=== PATIENT | male | born 1950 | race Caucasian/White ===

== ENCOUNTER 2016-09-16 10:47 | Emergency (ER) | payer MEDICARE, MEDICAID ==
[~2016-09-16] VITALS: Ht 177.8 cm; Wt 95.5 kg
[2016-09-16] MEDS ORDERED: FLUD.1 PO ×2 (11:18→19:22)
[2016-09-16] MEDS ORDERED: CLON.1 PO (11:18)
[2016-09-16] MEDS ORDERED: CYCL100L PO ×2 (11:18→19:22)
[2016-09-16] MEDS ORDERED: ALBU8HFA IH (11:18)
[2016-09-16] MEDS ORDERED: METO-325 PO (11:18)
[2016-09-16] MEDS ORDERED: LORA1TAB3 PO (11:18)
[2016-09-16] MEDS ORDERED: OMEP20 PO ×2 (11:18→19:22)
[2016-09-16] MEDS ORDERED: SENN-30 PO (11:18)
[2016-09-16] MEDS ORDERED: TAMS0.4C32 PO ×2 (11:18→19:22)
[2016-09-16] MEDS ORDERED: AMLO-511 PO (11:18)
[2016-09-16] MEDS ORDERED: CITA20TA9 PO ×2 (11:18→19:25)
[2016-09-16] MEDS ORDERED: TADA5TAB7 PO (11:18)
[2016-09-16] MEDS ORDERED: GABA-531 PO ×2 (11:18→19:25)
[2016-09-16] MEDS ORDERED: HYD25 PO ×2 (11:18→19:22)
[2016-09-16] MEDS ORDERED: CYCL10 PO (11:18)
[2016-09-16] MEDS ORDERED: ALBUTEROL SULFATE 5 MG/ML 20 ML NEB SOLN [BULK] NEB ONE ×2 (11:30→13:00)
[2016-09-16] MEDS ORDERED: ACETAMINOPHEN 1000 MG/ISO-OSM 100 ML IV ONE (11:30)
[2016-09-16] MEDS ORDERED: SODIUM CHLORIDE 0.9% 1,000 ML IV ONE ×2 (11:30→12:30)
[2016-09-16] MEDS ORDERED: IPRATROPIUM BROMIDE 0.5 MG/2.5 ML NEB SOLUTION NEB ONE ×2 (11:30→13:00)
[2016-09-16] MEDS ORDERED: MethylPREDNISolone SOD SUCC 125 MG/2 ML VIAL IVP ONE (11:30)
[2016-09-16 12:03] LABS: BASOPHILS % (AUTO) 0.5 % (0.0-2.0); EOSINOPHILS % (AUTO) 0.4 % (1.0-6.0); HEMATOCRIT 28.7 % (41-53); HEMOGLOBIN 9.7 g/dL (13.5-17.5); LYMPHOCYTES % (AUTO) 7.5 % (22.0-44.0); MEAN CORPUSCULAR HEMOGLOBIN 29.7 pg (26.0-34.0); MEAN CORPUSCULAR HGB CONC 33.8 G/dL (31.0-37.0); MEAN CORPUSCULAR VOLUME 88 fL (80-100); MONOCYTES # (AUTO) 0.8 K/uL (0.1-1.0); NEUTROPHILS # (AUTO) 11.7 K/uL (1.8-7.7); PLATELET COUNT (AUTO) 216 K/uL (150-450); RED BLOOD CELL COUNT(AUTO) 3.27 MIL/uL (4.50-5.90); RED CELL DISTRIBUTION WIDTH 14.8 % (11.5-14.5); WHITE BLOOD COUNT (AUTO) 13.7 K/uL (4.5-11.0)
[2016-09-16 12:04] LABS: NEUTROPHILS % (AUTO) 85.6 % (40.0-70.0)
[2016-09-16 12:21] LABS: LACTIC ACID 1.3 mmol/L (0.4-2.0)
[2016-09-16 12:24] LABS: ANION GAP 16 mmol/L (8-16); CALCIUM, TOTAL 8.7 mg/dL (8.8-10.5); CARBON DIOXIDE 17 mmol/L (22-29); CHLORIDE 101 mmol/L (98-107); CREATININE 2.78 mg/dL (0.60-1.30); GLOMERULAR FILTR. RATE CALC 23 mL/min (>60); POTASSIUM 4.1 mmol/L (3.5-5.1); SODIUM SERUM 134 mmol/L (136-145); UREA NITROGEN, BLOOD 50 mg/dL (7-18)
[2016-09-16 12:26] LABS: ALANINE AMINOTRANSFERASE 25 U/L (12-78); ALBUMIN 2.7 g/dL (3.4-5.0); ASPARTATE AMINOTRANSFERASE 20 U/L (15-37); BILIRUBIN,TOTAL 0.5 mg/dL (0.1-1.0)
[2016-09-16 12:34] LABS: B-TYPE NATRIURETIC PEPTIDE 313 pg/mL (0-100)
[2016-09-16 12:45] LABS: ABG A-A DIFF O2 203.1 mmHg (10-20.0); ABG BASE EXCESS -13.2 mmol/L (-2.0-3.0); ABG HCO3 14.8 mmol/L (22.0-26.0); ABG OXYHEMOGLOBIN 89.7 % (94.0-100.0); ABG PCO2 34 mmHg (35-45); ABG PH 7.236 (7.35-7.450); ALLEN TEST, BLOOD GAS Positive; TEMPERATURE, FAHRENHEIT, BG 100.1 FAHREN (96.0-98.6)
[2016-09-16] MEDS ORDERED: PIPERACILLIN/TAZO 3.375 GM/D5W 50 ML IV ONE (13:00)
[2016-09-16] MEDS ORDERED: LEVOFLOXACIN 500 MG/D5% WATER 100 ML IV ONE (13:00)
[2016-09-16 13:01] LABS: CREATINE KINASE MB 1.8 ng/mL (0-5); CREATINE KINASE, TOTAL 93 U/L (39-308)
[2016-09-16 14:04] LABS: PROCALCITONIN (PCT) 2.05 ng/mL (<0.50)
[2016-09-16 14:05] LABS: ABG A-A DIFF O2 110.3 mmHg (10-20.0); ABG BASE EXCESS -15.7 mmol/L (-2.0-3.0); ABG OXYHEMOGLOBIN 83.3 % (94.0-100.0); ABG PCO2 32 mmHg (35-45); ABG PH 7.198 (7.35-7.450); TEMPERATURE, FAHRENHEIT, BG 99.8 FAHREN (96.0-98.6)
[2016-09-16 14:06] LABS: ALLEN TEST, BLOOD GAS Positive; IPAP, BG 16 cm H2O
[2016-09-16] MEDS ORDERED: ACETAMINOPHEN 325 MG TABLET PO PRN (14:45)
[2016-09-16] MEDS ORDERED: ONDANSETRON HCL 4 MG/2 ML VIAL IVP PRN (14:45)
[2016-09-16] MEDS: ALBUTEROL SULFATE 2.5 MG/0.5 ML NEB SOLUTION NEB SCH ×3 (15:28→22:51)
[2016-09-16] MEDS: IPRATROPIUM BROMIDE 0.5 MG/2.5 ML NEB SOLUTION NEB SCH ×3 (15:28→22:52)
[2016-09-16 17:17] LABS: APPEARANCE,URINE CLOUDY (CLEAR); GLUCOSE, URINE (UA) 100 mg/dL (NEGATIVE); KETONES,URINE NEGATIVE (NEGATIVE); LEUKOCYTE ESTERASE ,URINE NEGATIVE (NEGATIVE); OCCULT BLOOD,URINE MODERATE (NEGATIVE); PROTEIN,URINE TRACE (NEGATIVE)
[2016-09-16 17:31] LABS: ADD UA MICROSCOPIC YES
[2016-09-16 17:32] LABS: SQUAMOUS EPITHELIAL CELL,UR Rare /LPF (None Seen); WBC,URINE 0-2 /HPF (0-5)
[2016-09-16] MEDS ORDERED: SODIUM BICARBONATE 150 MEQ in DEXTROSE 5%-WATER 1,000 ML IV ONE (18:00)
[2016-09-16] MEDS ORDERED: FOLI0.4T2 PO (19:22)
[2016-09-16] MEDS ORDERED: ASPI-1093 PO (19:22)
[2016-09-16] MEDS ORDERED: AMLO2.5T PO (19:22)
[2016-09-16] MEDS ORDERED: TADA5TAB2 PO (19:22)
[2016-09-16] MEDS ORDERED: CLON0.1T PO (19:22)
[2016-09-16] MEDS ORDERED: SIRO0.5T3 PO (19:22)
[2016-09-16] MEDS ORDERED: METO25 PO (19:25)
[2016-09-16] MEDS ORDERED: DAPTOMYCIN 500 MG in SODIUM CHLORIDE 0.9% 50 ML IV SCH (20:00)
[2016-09-16] MEDS: PIPERACILLIN SODIUM/TAZOBACTAM 2.25 GM in DEXTROSE 5%-WATER 50 ML IV SCH (20:21)
[2016-09-16 20:46] LABS: SALICYLATE 4.9 mg/dL (2.8-20.0)
[2016-09-16 20:47] LABS: ANION GAP 20 mmol/L (8-16); CARBON DIOXIDE 13 mmol/L (22-29); CHLORIDE 100 mmol/L (98-107); CREATININE 3.16 mg/dL (0.60-1.30); GLOMERULAR FILTR. RATE CALC 20 mL/min (>60); POTASSIUM 3.6 mmol/L (3.5-5.1); SODIUM SERUM 133 mmol/L (136-145); UREA NITROGEN, BLOOD 49 mg/dL (7-18)
[2016-09-16 21:04] LABS: ACETAMINOPHEN < 2 mcg/mL (10-30); CALCIUM, TOTAL 8.3 mg/dL (8.8-10.5)
[2016-09-16] MEDS ORDERED: DEXTROSE 5%-0.45% SODIUM CHL 1,000 ML IV PRN (21:56)
[2016-09-16] MEDS ORDERED: SODIUM CHLORIDE 0.45% 1,000 ML IV PRN (21:56)
[2016-09-16] MEDS ORDERED: SODIUM CHLORIDE 0.9% 1,000 ML IV SCH (21:56)
[2016-09-16] MEDS ORDERED: POTASSIUM CHL 20 MEQ/0.45% NS 1,000 ML IV PRN (21:56)
[2016-09-16 21:57] LABS: ABG A-A DIFF O2 143.4 mmHg (10-20.0); ABG BASE EXCESS -15.9 mmol/L (-2.0-3.0); ABG HCO3 13.2 mmol/L (22.0-26.0); ABG OXYHEMOGLOBIN 95.3 % (94.0-100.0); ABG PCO2 27 mmHg (35-45); TEMPERATURE, FAHRENHEIT, BG 97.3 FAHREN (96.0-98.6)
[2016-09-16 21:58] LABS: ALLEN TEST, BLOOD GAS POSITIVE; IPAP, BG 14 cm H2O
[2016-09-16] MEDS ORDERED: DEXTROSE 50%-WATER 25 GM/50 ML SYRINGE IVP PRN (22:00)
[2016-09-16 22:17] LABS: GLUCOSE,POINT OF CARE 444 MG/DL (70-110)
[2016-09-16] MEDS: INSULIN REGULAR, HUMAN 100 UNITS in SODIUM CHLORIDE 0.9% 99 ML IV PRN ×2 (22:30)
[2016-09-16] MEDS ORDERED: FLUCONAZOLE 200 MG/NACL ISOOSM 100 ML IV SCH (23:00)
[2016-09-16 23:07] LABS: GLUCOSE,POINT OF CARE 457 MG/DL (70-110)
[2016-09-16 23:26] LABS: EOSINOPHILS % (AUTO) 0.1 % (1.0-6.0); HEMATOCRIT 26.5 % (41-53); HEMOGLOBIN 8.8 g/dL (13.5-17.5); LYMPHOCYTES # (AUTO) 0.3 K/uL (1.0-4.8); LYMPHOCYTES % (AUTO) 2.1 % (22.0-44.0); MEAN CORPUSCULAR HEMOGLOBIN 29.8 pg (26.0-34.0); MEAN CORPUSCULAR HGB CONC 33.4 G/dL (31.0-37.0); MEAN CORPUSCULAR VOLUME 89 fL (80-100); MONOCYTES # (AUTO) 0.1 K/uL (0.1-1.0); MONOCYTES % (AUTO) 0.9 % (2.0-9.0); NEUTROPHILS # (AUTO) 11.7 K/uL (1.8-7.7); NEUTROPHILS % (AUTO) 96.9 % (40.0-70.0); PLATELET COUNT (AUTO) 182 K/uL (150-450); RED BLOOD CELL COUNT(AUTO) 2.97 MIL/uL (4.50-5.90); RED CELL DISTRIBUTION WIDTH 14.9 % (11.5-14.5); WHITE BLOOD COUNT (AUTO) 12.1 K/uL (4.5-11.0)
[2016-09-16 23:38] LABS: CALCIUM, TOTAL 8.2 mg/dL (8.8-10.5); CREATININE 3.06 mg/dL (0.60-1.30); POTASSIUM 3.3 mmol/L (3.5-5.1)
[2016-09-17 00:01] LABS: GLUCOSE,POINT OF CARE 434 MG/DL (70-110)
[2016-09-17] MEDS: PIPERACILLIN SODIUM/TAZOBACTAM 2.25 GM in DEXTROSE 5%-WATER 50 ML IV SCH ×4 (00:04→13:25)
[2016-09-17] MEDS: POTASSIUM CHLORIDE 40 MEQ in SODIUM CHLORIDE 0.45% 1,000 ML IV PRN ×9 (00:19→07:00)
[2016-09-17] MEDS: INSULIN REGULAR, HUMAN 100 UNITS in SODIUM CHLORIDE 0.9% 99 ML IV PRN ×14 (00:22→06:07)
[2016-09-17 01:12] LABS: GLUCOSE COMMENT 1 Received Meds; GLUCOSE,POINT OF CARE 375 MG/DL (70-110)
[2016-09-17] MEDS: INSULIN REGULAR, HUMAN 100 UNITS/ML IVP PRN ×3 (01:17→03:12)
[2016-09-17 02:17] LABS: GLUCOSE,POINT OF CARE 332 MG/DL (70-110)
[2016-09-17 03:31] LABS: GLUCOSE COMMENT 1 Received Meds; GLUCOSE,POINT OF CARE 294 MG/DL (70-110)
[2016-09-17 04:14] LABS: GLUCOSE,POINT OF CARE 235 MG/DL (70-110)
[2016-09-17 04:28] LABS: ALBUMIN 2.3 g/dL (3.4-5.0); BILIRUBIN,TOTAL 0.2 mg/dL (0.1-1.0); CALCIUM, TOTAL 8.3 mg/dL (8.8-10.5); CREATININE 2.68 mg/dL (0.60-1.30); MAGNESIUM 1.5 mg/dL (1.80-2.40); TOTAL PROTEIN, SERUM 6.4 g/dL (6.4-8.2)
[2016-09-17 04:47] LABS: POTASSIUM 2.9 mmol/L (3.5-5.1)
[2016-09-17 04:48] LABS: PHOSPHORUS 1.2 mg/dL (2.5-4.9)
[2016-09-17 05:12] LABS: GLUCOSE,POINT OF CARE 218 MG/DL (70-110)
[2016-09-17] MEDS ORDERED: MAGNESIUM OXIDE 400 MG TABLET PO PRN ×2 (05:15→07:15)
[2016-09-17] MEDS ORDERED: MAGNESIUM SULFATE 2 GM in DEXTROSE 5%-WATER 50 ML IV PRN ×2 (05:15→07:15)
[2016-09-17] MEDS ORDERED: POTASSIUM CHLORIDE 20 MEQ ER TABLET PO PRN ×2 (05:15→07:15)
[2016-09-17] MEDS ORDERED: POTASSIUM CHL 10 MEQ/WATER 50 ML IV PRN (05:15)
[2016-09-17] MEDS ORDERED: MAGNESIUM SULFATE 4 GM/WATER 100 ML IV PRN ×2 (05:15→07:15)
[2016-09-17 06:07] LABS: GLUCOSE,POINT OF CARE 186 MG/DL (70-110)
[2016-09-17] MEDS: POTASSIUM CHL 10 MEQ/WATER 50 ML IV PRN ×4 (08:09→11:33)
[2016-09-17 08:13] LABS: CALCIUM, TOTAL 8.4 mg/dL (8.8-10.5); CREATININE 2.38 mg/dL (0.60-1.30); POTASSIUM 3.6 mmol/L (3.5-5.1)
[2016-09-17 08:32] LABS: GLUCOSE COMMENT 1 Received Meds; GLUCOSE,POINT OF CARE 142 MG/DL (70-110)
[2016-09-17 08:32] LABS: GLUCOSE,POINT OF CARE 90 MG/DL (70-110)
[2016-09-17 08:40] LABS: ALBUMIN 2.2 g/dL (3.4-5.0)
[2016-09-17 09:20] LABS: ABG A-A DIFF O2 145.1 mmHg (10-20.0); ABG BASE EXCESS -8.8 mmol/L (-2.0-3.0); ABG HCO3 17.9 mmol/L (22.0-26.0); ABG OXYHEMOGLOBIN 92.3 % (94.0-100.0); ABG PCO2 33 mmHg (35-45); ALLEN TEST, BLOOD GAS Positive; TEMPERATURE, FAHRENHEIT, BG 98.6 FAHREN (96.0-98.6)
[2016-09-17 09:22] LABS: IPAP, BG 14 cm H2O
[2016-09-17 09:42] LABS: GLUCOSE,POINT OF CARE 57 MG/DL (70-110)
[2016-09-17 09:52] LABS: GLUCOSE,POINT OF CARE 124 MG/DL (70-110)
[2016-09-17 10:42] LABS: GLUCOSE,POINT OF CARE 85 MG/DL (70-110)
[2016-09-17] MEDS ORDERED: SODIUM CHLORIDE 0.45% 1,000 ML IV SCH (11:15)
[2016-09-17 11:23] LABS: CALCIUM, TOTAL 8.4 mg/dL (8.8-10.5); CREATININE 2.29 mg/dL (0.60-1.30); POTASSIUM 4.8 mmol/L (3.5-5.1)
[2016-09-17 11:47] LABS: GLUCOSE,POINT OF CARE 88 MG/DL (70-110)
[2016-09-17] MEDS ORDERED: ACETAMINOPHEN 325 MG TABLET PO ONE (12:00)
[2016-09-17] MEDS ORDERED: *CLINICAL-LEVOFLOXACIN IVPB DOSING CLINICAL ONE ×2 (12:15)
[2016-09-17] MEDS ORDERED: LEVOFLOXACIN 750 MG/D5% WATER 150 ML IV SCH (13:00)
[2016-09-17 13:37] LABS: GLUCOSE,POINT OF CARE 103 MG/DL (70-110)
[2016-09-17 13:37] LABS: GLUCOSE,POINT OF CARE 133 MG/DL (70-110)
[2016-09-17 14:41] LABS: GLUCOSE,POINT OF CARE 141 MG/DL (70-110)
[2016-09-17 15:32] LABS: CALCIUM, TOTAL 8.4 mg/dL (8.8-10.5); CREATININE 2.23 mg/dL (0.60-1.30); POTASSIUM 5.5 mmol/L (3.5-5.1)
[2016-09-17 15:57] LABS: GLUCOSE,POINT OF CARE 152 MG/DL (70-110)
[2016-09-17 17:17] VITALS: BP 146/81
[2016-09-17 17:22] LABS: GLUCOSE,POINT OF CARE 144 MG/DL (70-110)
[2016-09-17] MEDS ORDERED: [UNRECOGNIZED DRUG - REMARK] PO SCH (21:00)
[2016-09-18] MEDS ORDERED: DAPTOMYCIN 500 MG in SODIUM CHLORIDE 0.9% 50 ML IV SCH (22:00)
[2016-09-20] MEDS ORDERED: SIROLIMUS 0.5 MG TABLET PO SCH (09:00)
== END 2016-09-17 17:46 | disposition short-term general hospital (02) ==
LOC: EMS 10:50
DX: J96.91 Respiratory failure, unspecified with hypoxia (principal); J45.909 Unspecified asthma, uncomplicated; J18.9 Pneumonia, unspecified organism; N28.9 Disorder of kidney and ureter, unspecified; I10 Essential (primary) hypertension; Z94.4 Liver transplant status; Z85.05 Personal history of malignant neoplasm of liver; Z91.041 Radiographic dye allergy status
CPT/HCPCS: 36415; 51702; 71010; 71250; 72192; 74150; 76770; 80048; 80053; 80158; 80202; 81001; 82009; 82010; 82040; 82550; 82553; 82805; 82962; 83605; 83735; 83880; 84100; 84145; 84484; 85025; 87040; 93005; 93306; 94640; 94644; 94645; 94660 ×2; 96365; 96366; 96367; 96368; 96375; 99291; G0480; J0131; J0878; J1450 ×2; J1815 ×2; J1956 ×2; J2543 ×3; J2930; J3475; J3480 ×3; J3490; J7030; J7050 ×3; J7060 ×3; G0481; J7502